=== PATIENT | male | born 1930 | race Caucasian/White ===

== ENCOUNTER 2017-01-25 13:24 | Outpatient (CLI) | payer OTHER | END 2017-01-25 19:12 | disposition home or self-care (01) | LOC: SRD 13:24 | PROVIDERS: ATTEND Family Medicine | DX: Z01.818 Encounter for other preprocedural examination (principal); N21.0 Calculus in bladder; J98.4 Other disorders of lung; I77.1 Stricture of artery; I70.90 Unspecified atherosclerosis | CPT/HCPCS: 71020-TC ==

== ENCOUNTER 2017-06-28 13:16 | Outpatient (CLI) | payer OTHER | END 2017-06-28 21:03 | disposition home or self-care (01) | LOC: SRD 13:16 | PROVIDERS: ATTEND Family Medicine | DX: Z01.818 Encounter for other preprocedural examination (principal); R05 Cough; I10 Essential (primary) hypertension; J92.9 Pleural plaque without asbestos | CPT/HCPCS: 71020-TC ==

== ENCOUNTER 2022-08-30 15:27 | Inpatient (IN) | payer OTHER ==
[~2022-08-30] VITALS: Ht 167.6 cm; Wt 90.7 kg
[2022-08-30 15:34] VITALS: BP_SYST 145
[2022-08-30] MEDS ORDERED: NACL 0.9% 1,000 ML IV ONE (16:15)
[2022-08-30 16:55] LABS: BASOPHILS # (AUTO) 0.1 K/uL (0.0-0.2); BASOPHILS % (AUTO) 0.6 % (0.0-2.0); EOSINOPHILS # (AUTO) 0.2 K/uL (0.0-0.4); EOSINOPHILS % (AUTO) 1.9 % (0.0-4.0); HEMOGLOBIN 11.5 g/dL (14.0-18.0); LYMPHOCYTES # (AUTO) 0.6 K/uL (1.0-5.5); LYMPHOCYTES % (AUTO) 4.8 % (20.5-51.5); MEAN CORPUSCULAR HEMOGLOBIN 23 pg (27-31); MEAN CORPUSCULAR HGB CONC 32 % (32-36); MEAN CORPUSCULAR VOLUME 71 fL (79.0-98.0); MONOCYTES # (AUTO) 0.4 K/uL (0.0-1.0); MONOCYTES % (AUTO) 2.9 % (1.7-9.3); NEUTROPHILS # (AUTO) 11.6 K/uL (1.8-7.7); NEUTROPHILS % (AUTO) 89.8 % (40.0-70.0); PLATELET COUNT (AUTO) 212 K/uL (130-430); RED BLOOD CELL COUNT(AUTO) 5.05 MIL/uL (4.2-6.2); RED CELL DISTRIBUTION WIDTH 18.1 % (9.0-15.0); WHITE BLOOD COUNT (AUTO) 12.9 K/uL (4.8-10.8)
[2022-08-30 17:21] LABS: INR 1.2 (0.80-1.20); PROTHROMBIN TIME 11.7 SECS (9.5-12.5)
[2022-08-30 18:30] LABS: ALANINE AMINOTRANSFERASE 15 U/L (12-78); ALBUMIN 3.3 g/dL (3.4-4.8); ANION GAP 13 (5-15); ASPARTATE AMINOTRANSFERASE 20 U/L (10-37); CALCIUM 9.2 mg/dL (8.4-11.0); CHLORIDE 102 mmol/L (98-107); CREATININE 1.46 mg/dL (0.55-1.30); GLUCOSE 160 mg/dL (70-99); TOTAL BILIRUBIN 0.3 mg/dL (0.0-1.0); UREA NITROGEN, BLOOD 38 mg/dL (8-21)
[2022-08-30 18:37] LABS: ALCOHOL, BLOOD < 3 mg/dL (<10)
[2022-08-30] MEDS ORDERED: PIPERACILLIN/TAZO 3.375 GM in NS 50 ML IV ONE (22:30)
[2022-08-30] MEDS ORDERED: VANCOMYCIN HCL 1,000 MG in NS 250 ML IV ONE (22:30)
[2022-08-30] MEDS ORDERED: HYDR25TA4 PO (23:21)
[2022-08-30] MEDS ORDERED: ASCO500T20 PO (23:21)
[2022-08-30] MEDS ORDERED: AMIN30LI2 PO (23:21)
[2022-08-30] MEDS ORDERED: HYDR-4284 PO (23:21)
[2022-08-30] MEDS ORDERED: CELE100C PO (23:21)
[2022-08-30] MEDS ORDERED: VALS160T2 PO (23:21)
[2022-08-30] MEDS ORDERED: GABA-533 PO (23:21)
[2022-08-30] MEDS ORDERED: OMEP20CA15 PO (23:21)
[2022-08-30] MEDS ORDERED: MULT-1117 PO (23:21)
[2022-08-30] MEDS ORDERED: POLY17PO4 PO (23:21)
[2022-08-30] MEDS ORDERED: NALD0.2T3 PO (23:21)
[2022-08-30] MEDS ORDERED: CRAN450T9 PO (23:21)
[2022-08-30] MEDS ORDERED: SENN8.6T19 PO (23:21)
[2022-08-30] MEDS ORDERED: INSU100V53 SQ (23:21)
[2022-08-30] MEDS ORDERED: GLIM4TAB PO (23:21)
[2022-08-30] MEDS ORDERED: SIMV-343 PO (23:21)
[2022-08-30] MEDS ORDERED: VANCOMYCIN HCL 1000 MG/VIAL IV ONE (23:48)
[2022-08-30] MEDS ORDERED: PIPERACILLIN/TAZOBACTAM 3.375 GM/VIAL (ZOSYN) IV ONE (23:48)
[2022-08-30] MEDS: 0.45% NACL 1,000 ML IV SCH (23:56)
[2022-08-31 01:20] VITALS: BP_SYST 132
[2022-08-31] MEDS: traMADol HCL HCL 50 MG TABLET (ULTRAM) PO PRN ×2 (04:59→21:23)
[2022-08-31 08:00] VITALS: BP_SYST 120
[2022-08-31 08:30] LABS: ANION GAP 9 (5-15); CALCIUM 8.3 mg/dL (8.4-11.0); CHLORIDE 103 mmol/L (98-107); CREATININE 1.09 mg/dL (0.55-1.30); GLUCOSE 83 mg/dL (70-99); UREA NITROGEN, BLOOD 31 mg/dL (8-21)
[2022-08-31 08:34] LABS: ALANINE AMINOTRANSFERASE 11 U/L (12-78); ALBUMIN 2.9 g/dL (3.4-4.8); ASPARTATE AMINOTRANSFERASE 22 U/L (10-37); TOTAL BILIRUBIN 0.5 mg/dL (0.0-1.0)
[2022-08-31] MEDS ORDERED: cefTRIAXone 1 GM IVPB PREMIX 50 ML IV SCH (09:00)
[2022-08-31 09:04] LABS: BASOPHILS % (AUTO) 0.5 % (0.0-2.0); EOSINOPHILS # (AUTO) 0.1 K/uL (0.0-0.4); EOSINOPHILS % (AUTO) 1.4 % (0.0-4.0); HEMATOCRIT 31.9 % (36-54); HEMOGLOBIN 10.4 g/dL (14.0-18.0); LYMPHOCYTES # (AUTO) 0.6 K/uL (1.0-5.5); LYMPHOCYTES % (AUTO) 7.2 % (20.5-51.5); MEAN CORPUSCULAR HEMOGLOBIN 23 pg (27-31); MEAN CORPUSCULAR HGB CONC 32 % (32-36); MEAN CORPUSCULAR VOLUME 71 fL (79.0-98.0); MONOCYTES # (AUTO) 0.5 K/uL (0.0-1.0); NEUTROPHILS # (AUTO) 6.6 K/uL (1.8-7.7); NEUTROPHILS % (AUTO) 84.9 % (40.0-70.0); PLATELET COUNT (AUTO) 228 K/uL (130-430); RED BLOOD CELL COUNT(AUTO) 4.51 MIL/uL (4.2-6.2); RED CELL DISTRIBUTION WIDTH 18.1 % (9.0-15.0); WHITE BLOOD COUNT (AUTO) 7.7 K/uL (4.8-10.8)
[2022-08-31] MEDS ORDERED: AZITHROMYCIN 500 MG in NS 250 ML IV SCH (10:00)
[2022-08-31] MEDS: cefTRIAXone 1 GM IVPB PREMIX 50 ML IV SCH (10:18)
[2022-08-31] MEDS: AZITHROMYCIN 500 MG in NS 250 ML IV SCH (10:18)
[2022-08-31 11:48] VITALS: BP_SYST 119
[2022-08-31] MEDS: INSULIN REGULAR, HUMAN 100 UNITS/ML, 3 ML VIAL (humuLIN R) SUBCUT PRN (14:20)
[2022-08-31] MEDS ORDERED: ASCORBIC ACID 500 MG TABLET PO ONE (14:30)
[2022-08-31 16:48] VITALS: BP_SYST 126
[2022-08-31 21:00] VITALS: BP_SYST 110
[2022-08-31] MEDS ORDERED: NON-FORMULARY MEDICATION (Cranberry Fruit (Cranberry) 425 MG) PO SCH (21:00)
[2022-08-31] MEDS: GABAPENTIN 400 MG CAPSULE PO SCH (21:00)
[2022-08-31] MEDS: POLYETHYLENE GLYCOL 3350, 17 GM/ POWD.PACK PO SCH (21:19)
[2022-08-31] MEDS: SIMVASTATIN 20 MG TABLET PO SCH (21:21)
[2022-08-31] MEDS: SENNOSIDES 8.6 MG TABLET PO SCH (21:21)
[2022-08-31] MEDS: INSULIN GLARGINE 100 UNITS/ML, 10 ML VIAL SQ SCH (21:36)
[2022-08-31] MEDS: CELECOXIB 100 MG CAPSULE PO SCH (21:43)
[2022-08-31] MEDS: ENOXAPARIN SODIUM 40 MG/0.4 ML SYRINGE SUBCUT SCH (21:44)
[2022-09-01] MEDS: 0.45% NACL 1,000 ML IV SCH ×3 (00:34→20:51)
[2022-09-01 01:12] VITALS: BP_SYST 126
[2022-09-01 06:52] LABS: BASOPHILS % (AUTO) 0.4 % (0.0-2.0); EOSINOPHILS # (AUTO) 0.1 K/uL (0.0-0.4); EOSINOPHILS % (AUTO) 0.8 % (0.0-4.0); HEMOGLOBIN 10.2 g/dL (14.0-18.0); LYMPHOCYTES # (AUTO) 0.5 K/uL (1.0-5.5); LYMPHOCYTES % (AUTO) 7.4 % (20.5-51.5); MEAN CORPUSCULAR HEMOGLOBIN 23 pg (27-31); MEAN CORPUSCULAR HGB CONC 33 % (32-36); MEAN CORPUSCULAR VOLUME 71 fL (79.0-98.0); MONOCYTES # (AUTO) 0.4 K/uL (0.0-1.0); MONOCYTES % (AUTO) 6.1 % (1.7-9.3); NEUTROPHILS # (AUTO) 5.6 K/uL (1.8-7.7); NEUTROPHILS % (AUTO) 85.3 % (40.0-70.0); PLATELET COUNT (AUTO) 232 K/uL (130-430); RED BLOOD CELL COUNT(AUTO) 4.39 MIL/uL (4.2-6.2); RED CELL DISTRIBUTION WIDTH 17.9 % (9.0-15.0); WHITE BLOOD COUNT (AUTO) 6.6 K/uL (4.8-10.8)
[2022-09-01] MEDS: PANTOPRAZOLE SODIUM 40 MG TAB PO SCH (06:54)
[2022-09-01] MEDS: GLIMEPIRIDE 2 MG TABLET PO SCH (06:54)
[2022-09-01] MEDS ORDERED: OMEPRAZOLE Non-Formulary 20 MG CAPSULE.DR PO SCH (07:00)
[2022-09-01 07:07] LABS: ANION GAP 9 (5-15); CALCIUM 8.4 mg/dL (8.4-11.0); CHLORIDE 104 mmol/L (98-107); CREATININE 1.22 mg/dL (0.55-1.30); GLUCOSE 110 mg/dL (70-99); UREA NITROGEN, BLOOD 32 mg/dL (8-21)
[2022-09-01] MEDS ORDERED: NON-FORMULARY MEDICATION (Amino Acids/Protein Hydrolys (Pro-Stat Liquid) 30 ML) PO SCH (09:00)
[2022-09-01] MEDS ORDERED: VALSARTAN 160 MG TABLET (DIOVAN) PO SCH (09:00)
[2022-09-01] MEDS ORDERED: NALDEMEDINE TOSYLATE PO SCH (09:00)
[2022-09-01] MEDS: POLYETHYLENE GLYCOL 3350, 17 GM/ POWD.PACK PO SCH ×2 (09:35→20:49)
[2022-09-01] MEDS: cefTRIAXone 1 GM IVPB PREMIX 50 ML IV SCH (09:35)
[2022-09-01] MEDS: MULTIVITAMINS TAB 1 TABLET PO SCH (09:36)
[2022-09-01] MEDS: ASCORBIC ACID 500 MG TABLET PO SCH (09:36)
[2022-09-01] MEDS: SENNOSIDES 8.6 MG TABLET PO SCH ×2 (09:36→20:49)
[2022-09-01] MEDS: GABAPENTIN 400 MG CAPSULE PO SCH ×3 (09:36→20:49)
[2022-09-01] MEDS: CELECOXIB 100 MG CAPSULE PO SCH ×2 (09:36→20:49)
[2022-09-01] MEDS: AZITHROMYCIN 500 MG in NS 250 ML IV SCH (09:37)
[2022-09-01] MEDS: LOSARTAN POTASSIUM 50 MG TABLET (COZAAR) PO SCH (09:40)
[2022-09-01 12:00] VITALS: BP_SYST 114; BP_SYST 136
[2022-09-01] MEDS: traMADol HCL HCL 50 MG TABLET (ULTRAM) PO PRN ×2 (14:46→21:11)
[2022-09-01 16:00] VITALS: BP_SYST 140
[2022-09-01 19:55] VITALS: BP_SYST 119
[2022-09-01] MEDS: SIMVASTATIN 20 MG TABLET PO SCH (20:49)
[2022-09-01] MEDS: ENOXAPARIN SODIUM 40 MG/0.4 ML SYRINGE SUBCUT SCH (20:50)
[2022-09-01] MEDS: INSULIN GLARGINE 100 UNITS/ML, 10 ML VIAL SQ SCH (20:54)
[2022-09-02 00:30] VITALS: BP_SYST 127
[2022-09-02 00:53] VITALS: BP_SYST 115
[2022-09-02] MEDS: GLIMEPIRIDE 2 MG TABLET PO SCH (06:16)
[2022-09-02] MEDS: PANTOPRAZOLE SODIUM 40 MG TAB PO SCH (06:16)
[2022-09-02] MEDS: traMADol HCL HCL 50 MG TABLET (ULTRAM) PO PRN ×3 (06:17→21:41)
[2022-09-02 08:00] VITALS: BP_SYST 149
[2022-09-02] MEDS: ASCORBIC ACID 500 MG TABLET PO SCH (09:22)
[2022-09-02] MEDS: POLYETHYLENE GLYCOL 3350, 17 GM/ POWD.PACK PO SCH ×2 (09:22→21:41)
[2022-09-02] MEDS: SENNOSIDES 8.6 MG TABLET PO SCH ×2 (09:23→21:40)
[2022-09-02] MEDS: GABAPENTIN 400 MG CAPSULE PO SCH ×3 (09:23→21:41)
[2022-09-02] MEDS: MULTIVITAMINS TAB 1 TABLET PO SCH (09:23)
[2022-09-02] MEDS: CELECOXIB 100 MG CAPSULE PO SCH ×2 (09:23→21:41)
[2022-09-02] MEDS: LOSARTAN POTASSIUM 50 MG TABLET (COZAAR) PO SCH (09:23)
[2022-09-02] MEDS: cefTRIAXone 1 GM IVPB PREMIX 50 ML IV SCH (09:46)
[2022-09-02] MEDS: AZITHROMYCIN 500 MG in NS 250 ML IV SCH (11:37)
[2022-09-02 20:00] VITALS: BP_SYST 136
[2022-09-02 20:02] VITALS: BP_SYST 136
[2022-09-02] MEDS: ENOXAPARIN SODIUM 40 MG/0.4 ML SYRINGE SUBCUT SCH (21:37)
[2022-09-02] MEDS: INSULIN GLARGINE 100 UNITS/ML, 10 ML VIAL SQ SCH (21:40)
[2022-09-02] MEDS: SIMVASTATIN 20 MG TABLET PO SCH (21:41)
[2022-09-03 02:29] VITALS: BP_SYST 142
[2022-09-03] MEDS: traMADol HCL HCL 50 MG TABLET (ULTRAM) PO PRN ×2 (05:43→17:19)
[2022-09-03] MEDS: PANTOPRAZOLE SODIUM 40 MG TAB PO SCH (05:43)
[2022-09-03] MEDS: 0.45% NACL 1,000 ML IV SCH (05:44)
[2022-09-03] MEDS: GLIMEPIRIDE 2 MG TABLET PO SCH (05:44)
[2022-09-03 07:00] VITALS: BP_SYST 119
[2022-09-03 07:10] LABS: ANION GAP 6 (5-15); CALCIUM 9.1 mg/dL (8.4-11.0); CHLORIDE 103 mmol/L (98-107); CREATININE 0.96 mg/dL (0.55-1.30); GLUCOSE 108 mg/dL (70-99); UREA NITROGEN, BLOOD 25 mg/dL (8-21)
[2022-09-03 07:36] LABS: BASOPHILS # (AUTO) 0.1 K/uL (0.0-0.2); BASOPHILS % (AUTO) 1.5 % (0.0-2.0); EOSINOPHILS # (AUTO) 0.2 K/uL (0.0-0.4); HEMATOCRIT 32.5 % (36-54); HEMOGLOBIN 10.5 g/dL (14.0-18.0); LYMPHOCYTES # (AUTO) 0.3 K/uL (1.0-5.5); LYMPHOCYTES % (AUTO) 5.8 % (20.5-51.5); MEAN CORPUSCULAR HEMOGLOBIN 23 pg (27-31); MEAN CORPUSCULAR HGB CONC 32 % (32-36); MEAN CORPUSCULAR VOLUME 71 fL (79.0-98.0); MONOCYTES # (AUTO) 0.4 K/uL (0.0-1.0); MONOCYTES % (AUTO) 6.9 % (1.7-9.3); NEUTROPHILS # (AUTO) 4.6 K/uL (1.8-7.7); NEUTROPHILS % (AUTO) 81.8 % (40.0-70.0); PLATELET COUNT (AUTO) 229 K/uL (130-430); RED BLOOD CELL COUNT(AUTO) 4.58 MIL/uL (4.2-6.2); RED CELL DISTRIBUTION WIDTH 18.1 % (9.0-15.0); WHITE BLOOD COUNT (AUTO) 5.7 K/uL (4.8-10.8)
[2022-09-03 08:00] VITALS: BP_SYST 119
[2022-09-03] MEDS: MULTIVITAMINS TAB 1 TABLET PO SCH (09:59)
[2022-09-03] MEDS: POLYETHYLENE GLYCOL 3350, 17 GM/ POWD.PACK PO SCH ×2 (09:59→20:49)
[2022-09-03] MEDS: LOSARTAN POTASSIUM 50 MG TABLET (COZAAR) PO SCH (09:59)
[2022-09-03] MEDS: SENNOSIDES 8.6 MG TABLET PO SCH ×2 (09:59→20:49)
[2022-09-03] MEDS: ASCORBIC ACID 500 MG TABLET PO SCH (09:59)
[2022-09-03] MEDS: cefTRIAXone 1 GM IVPB PREMIX 50 ML IV SCH (10:01)
[2022-09-03] MEDS: AZITHROMYCIN 500 MG in NS 250 ML IV SCH (10:02)
[2022-09-03] MEDS: GABAPENTIN 400 MG CAPSULE PO SCH ×3 (10:16→20:49)
[2022-09-03] MEDS: CELECOXIB 100 MG CAPSULE PO SCH ×2 (10:16→20:49)
[2022-09-03 20:00] VITALS: BP_SYST 131
[2022-09-03] MEDS: SIMVASTATIN 20 MG TABLET PO SCH (20:49)
[2022-09-03] MEDS: ENOXAPARIN SODIUM 40 MG/0.4 ML SYRINGE SUBCUT SCH (20:50)
[2022-09-03] MEDS: INSULIN GLARGINE 100 UNITS/ML, 10 ML VIAL SQ SCH (22:07)
[2022-09-04] VITALS: BP_SYST 125; BP_SYST 133
[2022-09-04] MEDS: PANTOPRAZOLE SODIUM 40 MG TAB PO SCH (06:21)
[2022-09-04] MEDS: 0.45% NACL 1,000 ML IV SCH (06:21)
[2022-09-04] MEDS: GLIMEPIRIDE 2 MG TABLET PO SCH (06:21)
[2022-09-04 07:00] VITALS: BP_SYST 122
[2022-09-04 07:05] LABS: BILIRUBIN,URINE NEGATIVE (NEGATIVE); BLOOD, URINE NEGATIVE (NEGATIVE); CLARITY/URINE CLEAR (CLEAR); COLOR,URINE YELLOW (YELLOW); GLUCOSE,URINE NEGATIVE (NEGATIVE); KETONES,URINE NEGATIVE (NEGATIVE); LEUKOCYTE ESTERASE ,URINE 1+ (NEGATIVE); NITRITE, URINE POSITIVE (NEGATIVE); PH,URINE 6.5 (5.0-8.0); PROTEIN URINE NEGATIVE (NEGATIVE); UROBILINOGEN,URINE 0.2 (0.2-1.0)
[2022-09-04 07:13] LABS: RBC,URINE 0-3 /HPF (0-3)
[2022-09-04 07:14] LABS: BACTERIA,URINE RARE /HPF (None Seen); MUCUS,URINE None Seen /LPF (None Seen); YEAST,URINE Few /HPF (None Seen)
[2022-09-04 08:00] VITALS: BP_SYST 122
[2022-09-04] MEDS ORDERED: D5W 1,000 ML IV PRN (08:15)
[2022-09-04] MEDS ORDERED: GLUCOSE (DEXTROSE) ORAL GEL -Adults PO PRN (08:15)
[2022-09-04] MEDS: cefTRIAXone 1 GM IVPB PREMIX 50 ML IV SCH (08:36)
[2022-09-04] MEDS: CELECOXIB 100 MG CAPSULE PO SCH ×2 (08:37→21:20)
[2022-09-04] MEDS: LOSARTAN POTASSIUM 50 MG TABLET (COZAAR) PO SCH (08:37)
[2022-09-04] MEDS: POLYETHYLENE GLYCOL 3350, 17 GM/ POWD.PACK PO SCH ×2 (08:38→21:19)
[2022-09-04] MEDS: MULTIVITAMINS TAB 1 TABLET PO SCH (08:39)
[2022-09-04] MEDS: SENNOSIDES 8.6 MG TABLET PO SCH ×2 (08:39→21:20)
[2022-09-04] MEDS: GABAPENTIN 400 MG CAPSULE PO SCH ×3 (08:39→21:20)
[2022-09-04] MEDS: ASCORBIC ACID 500 MG TABLET PO SCH (08:39)
[2022-09-04 10:57] LABS: TOTAL IRON BIND. CAPACITY 252 ug/dL (250-450)
[2022-09-04] MEDS: AZITHROMYCIN 500 MG in NS 250 ML IV SCH (11:01)
[2022-09-04] MEDS: traMADol HCL HCL 50 MG TABLET (ULTRAM) PO PRN ×2 (11:16→21:25)
[2022-09-04 12:00] VITALS: BP_SYST 125
[2022-09-04] MEDS: DEXTROSE 50% JECT 50 ML DISP.SYRIN IVP PRN (19:24)
[2022-09-04 20:00] VITALS: BP_SYST 137
[2022-09-04] MEDS: INSULIN GLARGINE 100 UNITS/ML, 10 ML VIAL SQ SCH (21:00)
[2022-09-04] MEDS: SIMVASTATIN 20 MG TABLET PO SCH (21:20)
[2022-09-04] MEDS: ENOXAPARIN SODIUM 40 MG/0.4 ML SYRINGE SUBCUT SCH (21:22)
[2022-09-05 00:40] VITALS: BP_SYST 112
[2022-09-05] MEDS: PANTOPRAZOLE SODIUM 40 MG TAB PO SCH (06:19)
[2022-09-05] MEDS: DEXTROSE 50% JECT 50 ML DISP.SYRIN IVP PRN (06:21)
[2022-09-05] MEDS: GLIMEPIRIDE 2 MG TABLET PO SCH (06:22)
[2022-09-05] MEDS: 0.45% NACL 1,000 ML IV SCH ×2 (06:23→21:00)
[2022-09-05 08:06] LABS: FERRITIN 75 ng/mL (30-400); FOLATE (FOLIC ACID) 7.8 ng/mL (>3.0)
[2022-09-05] MEDS: POLYETHYLENE GLYCOL 3350, 17 GM/ POWD.PACK PO SCH ×2 (09:00→22:29)
[2022-09-05] MEDS: SENNOSIDES 8.6 MG TABLET PO SCH ×2 (09:00→22:29)
[2022-09-05] MEDS: cefTRIAXone 1 GM IVPB PREMIX 50 ML IV SCH (09:30)
[2022-09-05] MEDS: CELECOXIB 100 MG CAPSULE PO SCH ×2 (10:34→22:29)
[2022-09-05] MEDS: LOSARTAN POTASSIUM 50 MG TABLET (COZAAR) PO SCH (10:35)
[2022-09-05] MEDS: ASCORBIC ACID 500 MG TABLET PO SCH (10:36)
[2022-09-05] MEDS: MULTIVITAMINS TAB 1 TABLET PO SCH (10:36)
[2022-09-05] MEDS: GABAPENTIN 400 MG CAPSULE PO SCH ×3 (10:36→22:28)
[2022-09-05 11:38] VITALS: BP_SYST 122
[2022-09-05 13:00] VITALS: BP_SYST 126
[2022-09-05 15:33] VITALS: BP_SYST 111
[2022-09-05 16:00] VITALS: BP_SYST 115
[2022-09-05] MEDS ORDERED: BICALUTAMIDE 50 MG TABLET PO SCH (18:00)
[2022-09-05 20:47] VITALS: BP_SYST 126
[2022-09-05] MEDS: ENOXAPARIN SODIUM 40 MG/0.4 ML SYRINGE SUBCUT SCH (22:28)
[2022-09-05] MEDS: SIMVASTATIN 20 MG TABLET PO SCH (22:29)
[2022-09-05] MEDS: FERROUS SULFATE 325 MG TABLET.DR PO SCH (22:30)
[2022-09-05] MEDS: INSULIN REGULAR, HUMAN 100 UNITS/ML, 3 ML VIAL (humuLIN R) SUBCUT PRN (22:32)
[2022-09-05] MEDS: INSULIN GLARGINE 100 UNITS/ML, 10 ML VIAL SQ SCH (22:33)
[2022-09-06 01:02] VITALS: BP_SYST 130
[2022-09-06] MEDS: PANTOPRAZOLE SODIUM 40 MG TAB PO SCH (07:10)
[2022-09-06] MEDS: GLIMEPIRIDE 2 MG TABLET PO SCH (07:11)
[2022-09-06 08:16] LABS: BASOPHILS % (AUTO) 0.7 % (0.0-2.0); EOSINOPHILS % (AUTO) 0.7 % (0.0-4.0); HEMOGLOBIN 10.6 g/dL (14.0-18.0); LYMPHOCYTES # (AUTO) 0.5 K/uL (1.0-5.5); LYMPHOCYTES % (AUTO) 10.6 % (20.5-51.5); MEAN CORPUSCULAR HEMOGLOBIN 23 pg (27-31); MEAN CORPUSCULAR HGB CONC 32 % (32-36); MEAN CORPUSCULAR VOLUME 71 fL (79.0-98.0); MONOCYTES # (AUTO) 0.3 K/uL (0.0-1.0); MONOCYTES % (AUTO) 6.8 % (1.7-9.3); NEUTROPHILS # (AUTO) 3.5 K/uL (1.8-7.7); NEUTROPHILS % (AUTO) 81.2 % (40.0-70.0); PLATELET COUNT (AUTO) 203 K/uL (130-430); RED BLOOD CELL COUNT(AUTO) 4.68 MIL/uL (4.2-6.2); RED CELL DISTRIBUTION WIDTH 18.6 % (9.0-15.0); WHITE BLOOD COUNT (AUTO) 4.3 K/uL (4.8-10.8)
[2022-09-06] MEDS: CELECOXIB 100 MG CAPSULE PO SCH (09:00)
[2022-09-06 11:29] VITALS: BP_SYST 121
[2022-09-06] MEDS: GABAPENTIN 400 MG CAPSULE PO SCH (11:59)
[2022-09-06] MEDS: ASCORBIC ACID 500 MG TABLET PO SCH (12:00)
[2022-09-06] MEDS: FERROUS SULFATE 325 MG TABLET.DR PO SCH (12:00)
[2022-09-06] MEDS: SENNOSIDES 8.6 MG TABLET PO SCH (12:00)
[2022-09-06] MEDS: LOSARTAN POTASSIUM 50 MG TABLET (COZAAR) PO SCH (12:00)
[2022-09-06] MEDS: POLYETHYLENE GLYCOL 3350, 17 GM/ POWD.PACK PO SCH (12:01)
[2022-09-06] MEDS: MULTIVITAMINS TAB 1 TABLET PO SCH (12:01)
[2022-09-06 14:06] VITALS: BP_SYST 126
== END 2022-09-06 14:00 | DRG 193 ==
LOC: SED 15:27 → STU 22:34 → SMU 09-02 23:39 → STU 09-02 23:57 → SMU 09-05 23:44
PROVIDERS: ADMIT Family Medicine; ATTEND Family Medicine
DX: J18.9 Pneumonia, unspecified organism (principal); N17.0 Acute kidney failure with tubular necrosis; E44.0 Moderate protein-calorie malnutrition; E86.0 Dehydration; I10 Essential (primary) hypertension; Z96.651 Presence of right artificial knee joint; E11.40 Type 2 diabetes mellitus with diabetic neuropathy, unspecified; C61 Malignant neoplasm of prostate; I25.10 Atherosclerotic heart disease of native coronary artery without angina pectoris; K76.9 Liver disease, unspecified; Z20.822 Contact with and (suspected) exposure to COVID-19; Z85.46 Personal history of malignant neoplasm of prostate; Z86.73 Personal history of transient ischemic attack (TIA), and cerebral infarction without residual deficits; Z95.1 Presence of aortocoronary bypass graft; Z68.32 Body mass index [BMI] 32.0-32.9, adult
CPT/HCPCS: 36415; 70450-TC; 71045; 71250-TC; 76376; 80048; 80053; 81000; 82272; 82607; 82728; 82746; 82962; 83540; 83550; 83605; 83735; 83880; 84153; 84484; 85025; 85044; 85610-TC; 85730-TC; 87040; 87081; 87086; 93005; 96365; 96368; 99285; G0378; G0482; J0456; J0696; J1650; J1815; J2543; J3370; J7050